=== PATIENT | male | born 2000 | race Caucasian/White ===

== ENCOUNTER → 2023-07-30 09:21 | Outpatient (REF) | payer BC, SELFPAY | LOC: RAD 09:21 | PROVIDERS: ATTENDING PHYSICIAN Specialist | DX: K50.00 Crohn's disease of small intestine without complications (principal) | CPT/HCPCS: 74250 ==

== ENCOUNTER 2023-10-27 18:25 | Inpatient (IN) | payer BC, SELFPAY ==
[2023-10-27] VITALS (9 sets, daily range): BP systolic 106–142; BP diastolic 56–98; BMI 22.2; BMI 21.8
[2023-10-27 12:01] LABS: % Basophils 0.2 % (0-2); % Immature Granulocytes 0.4 % (0-0.5); % Lymphocytes 4.8 % (20.5-51.1); % Monocytes 4.8 % (1.7-9.3); % Neutrophils 89.8 % (42.2-75.2); Absolute Immature Granulocytes 0.1 10^3/uL (0-0.05); Absolute Lymphocytes 0.6 10^3/uL (1.2-3.4); Absolute Monocytes 0.6 10^3/uL (0.1-0.6); Absolute Neutrophils 11.9 10^3/uL (1.4-6.5); Hematocrit 43.4 % (39.0-52.0); Hemoglobin 14.8 g/dL (13.0-18.0); Mean Corp Hgb Conc. 34.1 g/dL (33.0-37.0); Mean Corpuscular Hgb 24.7 pg (27.0-31.0); Mean Corpuscular Volume 72.5 fL (80.0-94.0); Mean Platelet Volume 8.4 fL (7.4-10.4); Nucleated Red Blood Cells % 0 % (-); Platelet Count 388 10^3/uL (130-400); Red Blood Cell Count 5.99 10^6/uL (4.70-6.10); Red Cell Dist. Width 18.4 % (11.5-14.5); White Blood Cell Count 13.2 10^3/uL (4.8-10.8)
[2023-10-27 12:15] LABS: Lactic Acid 1.5 mmol/L (0.7-2.0)
[2023-10-27 12:17] LABS: ALT (SGPT) 21 U/L (0-50); AST (SGOT) 24 U/L (17-59); Albumin 4.8 g/dl (3.5-5.0); Alkaline Phosphatase 87 U/L (38-126); Blood Urea Nitrogen 14 mg/dl (9-20); Calcium 10.3 mg/dl (8.4-10.2); Carbon Dioxide 22 mmol/L (22-30); Chloride 101 mmol/L (98-107); Glucose 131 mg/dl (70-99); Lipase 64 U/L (23-300); Potassium 4.6 mmol/L (3.5-5.1); Sodium 139 mmol/L (135-145); Total Bilirubin 1.2 mg/dl (0.2-1.3); Total Protein 7.8 g/dl (6.3-8.2); eGFR > 60.00
[2023-10-27] MEDS: NSS 1000 IV (13:21)
[2023-10-27] MEDS: OMNIPAQUE 50 ML PO (13:21)
[2023-10-27 13:33] LABS: Erythrocyte Sed Rate 11 mm/hour (0-20)
[2023-10-27] MEDS: ZOFRAN 4 MG IV ×2 (13:43→18:35)
[2023-10-27] MEDS: MORPHINE SULFATE 4 MG IV ×2 (14:43→16:30)
--- NOTE | 2023-10-27 17:11 | ED.GENMED ---
History of Present Illness
General
Chief Complaint: Abdominal Pain
Source: patient and family
Time Seen by Provider: 10/27/23 12:34
History of Present Illness
History of Present Illness:
22-year-old male with history of Crohn's disease who presents with abdominal pain. The patient states that he was coming home today from college to get an infusion of Skyrizi. He states that this morning he woke up feeling feverish. As he got on
the plane he began to have abdominal pain. He went to the bathroom did feel better after having a bowel movement. He since has vomited and the pain does seem better after vomiting or bowel movement. But the pain has persisted. No further feeling
of fevers. No melena or hematemesis. Patient got diagnosed this past summer.
Past History
Past History
ED Past Medical History: Other (Crohn's disease)
Phy Exam
Physical Exam
Physical Exam:
CONSTITUTIONAL Patient alert and oriented to person, place and time. Vital signs reviewed.
HEAD atraumatic, normocephalic.
EYES eyelids normal to inspection, Pupils equally round and reactive to light, Extraocular muscles intact, Conjunctiva normal, Sclera normal.
NECK normal range of motion, Trachea midline, no jugular venous distention.
RESPIRATORY CHEST No respiratory distress noted, Chest expansion equal
ABDOMEN moderate diffuse tenderness. Right lower quadrant greater than left lower quadrant..
BACK normal inspection, no obvious deformities
UPPER EXTREMITY range of motion normal, Motor strength normal, no cyanosis, no edema.
LOWER EXTREMITY range of motion normal, Motor strength normal, no cyanosis, no edema.
NEURO Speech normal, No focal motor deficits, Zonia coma scale 15, Memory normal, Cranial Nerves intact to screening exam.
SKIN skin warm, dry, and normal in color.
PSYCHIATRIC patient oriented to person place and time, Normal affect.
Course
Orders/Labs/Results
Orders:
Orders
10/27/23 11:44
C-Reactive Protein Urgent
Comment: ADD
Complete Blood Count/With Diff Urgent
Comprehensive Metabolic Panel Urgent
Erythrocyte Sed Rate Urgent
Comment: ADD
Ferritin Urgent
Comment: ADD ON
Iron Urgent
Comment: ADD ON
Lactic Acid Urgent
Lipase Urgent
Total Iron Binding Urgent
Comment: ADD ON
10/27/23 13:11
Add On- LAB Urgent
Tests Added?: CRP, ESR
10/27/23 13:12
CT Abd/pel W Iv And Oral Contr Urgent
Comment:
Reason For Exam: lower abd pain, h/o Crohns
Iohexol [Omnipaque] See Protocol PO NOW STA
10/27/23 13:13
0.9% Sodium Chloride 1000 ml [Nss] 1,000 ml IV BOLUS
10/27/23 13:41
Ondansetron Injectable [Zofran] 4 mg IV NOW STA
10/27/23 14:35
Morphine Sulfate 4 mg IV NOW STA
10/27/23 16:24
Morphine Sulfate 4 mg IV NOW STA
10/27/23 17:12
CDIFF [C difficile Antigen & Toxins] Urgent
[place] Source: Feces/Stool
Specimen Description:
Stool Culture Urgent
[place]IA Source: Feces/Stool
Specimen Description:
10/27/23 17:52
HYDROmorphone [Dilaudid] 0.5 mg IV Q3HPRN PRN
Ondansetron Injectable [Zofran] 4 mg IV Q6HPRN PRN
10/27/23 17:55
Add On- LAB Urgent
Tests Added?: Fe, TIBC, ferritin
10/27/23 17:56
Admit/Transfer Patient As Directed
Co-Sign Provider:
Level of Care: Inpatient admission
Assign to:: Medical/Surgical
Physician / Group: Tori
Diagnosis: crohn's flare
Reason for Hospitalization: crohn's flare
Expected length of stay greater than two midnights?: Yes
ELOS- Estimated Length of Stay in days: 4
I certify the patient meets the requirements for IP care: Yes
PRN Pain Medication Management As Directed
May give lesser potent ordered pain med per pt: Yes
preference::
Protocol:: Medication orders for pain may be administered in a
manner that supports deferring to patient preference
when the pt is:
- Requesting an ordered lesser potent pain medication.
Least to most potent pain medications are defined
as: acetaminophen < NSAID < tramadol < opioids
(morphine, oxycodone, hydromorphone).
- Requesting a lesser dose of the same medication IF
ORDERED.
- Requesting a less intrusive route of administration
if both routes are prescribed by the provider (PO <
IV).
10/27/23 17:57
Code Status As Directed
Resuscitation Status: Full Code
10/27/23 18:00
CefTRIAXone [Rocephin] 1,000 mg IV Q24H
MetroNIDAZOLE 500 MG/100 ML [Flagyl 500 mg] 100 ml IV Q8H
10/27/23 18:31
Dextrose 5%/0.45%Sodchl 1000ML [D5/0.45%NaCl] 1,000 ml IV 125 mls/hr
Enoxaparin Sodium [Lovenox] 40 mg SC QPM
10/27/23 18:31
GASTROINTESTINAL CONSULT Routine
Consulting Provider: Piyush Tellez
Was physician already notified: Yes
Reason for consult: crohn's flare
SURGICAL CONSULT Routine
Consulting Provider: Ramos Montalvo
Was physician already notified: Yes
Reason for consult: SBO
Activity As Directed
Activity Level: With Assistance
Vital Signs As Directed
Frequency: Per unit guidelines
DX Deep Vein Thrombosis Video Routine
10/27/23 20:00
MethylPREDNISolone PF [Solu-Medrol Pf] 40 mg IV Q8H
Vancomycin HCl [Firvanq] 125 mg PO Q12
10/28/23 Breakfast
NPO
Allow oral meds: Yes
Allow clear liquids: No
Basic Metabolic Panel IN AM
Complete Blood Count/No Diff IN AM
Magnesium IN AM
Abdomen Xray - 1 View [CR Abdomen - 1 View] IN AM
Comment:
Reason For Exam: SBO
10/29/23 06:00
Basic Metabolic Panel IN AM
Complete Blood Count/No Diff IN AM
10/30/23 06:00
Basic Metabolic Panel IN AM
Complete Blood Count/No Diff IN AM
10/31/23 06:00
Basic Metabolic Panel IN AM
Complete Blood Count/No Diff IN AM
11/01/23 06:00
Basic Metabolic Panel IN AM
Complete Blood Count/No Diff IN AM
11/02/23 06:00
Basic Metabolic Panel IN AM
Complete Blood Count/No Diff IN AM
11/03/23 06:00
Basic Metabolic Panel IN AM
Complete Blood Count/No Diff IN AM
Abnormal Lab Results
10/27/23
11:44
WBC 13.2 H 10^3/uL
(4.8-10.8)
MCV 72.5 L fL
(80.0-94.0)
MCH 24.7 L pg
(27.0-31.0)
RDW 18.4 H %
(11.5-14.5)
Abs Immat Gran (auto) 0.1 H 10^3/uL
(0-0.05)
Absolute Neuts (auto) 11.9 H 10^3/uL
(1.4-6.5)
Absolute Lymphs (auto) 0.6 L 10^3/uL
(1.2-3.4)
Neutrophils % 89.8 H %
(42.2-75.2)
Lymphocytes % 4.8 L %
(20.5-51.1)
Glucose 131 H mg/dl
(70-99)
Calcium 10.3 H mg/dl
(8.4-10.2)
Iron 36 L ug/dl
(49-181)
% Saturation 8 L %
(20-50)
C-Reactive Protein 25.30 H mg/L
(0.0-10.00)
10/27/23 11:44
10/27/23 11:44
Vital Signs
Initial and Last Documented VS:
Initial Vital Signs
Temp Pulse Resp BP Pulse Ox
98.2 F 80 20 142/98 99
10/27/23 11:37 10/27/23 11:37 10/27/23 11:37 10/27/23 11:37 10/27/23 11:37
Last Documented Vital Signs
Temp Pulse Resp BP Pulse Ox
97.6 F 85 18 138/74 96
10/27/23 19:43 10/27/23 19:43 10/27/23 19:43 10/27/23 19:43 10/27/23 19:43
MDM/Problems Addressed
MDM/Problems Addressed:
Acute flare of Crohn's disease, acute ileitis, suspected bowel obstruction, possible ileus, leukocytosis
*Radiology
Radiology exam reviewed: preliminary read by ED provider (No free air but significant inflammation in the right lower quadrant) and radiology read reviewed
*Pulse Oximetry
Patient hypoxic: no
*Critical Care Note
Total Time (30-74mins, 75-104mins- exclusive of procedures): Not Applicable
Data Reviewed
Source: patient and family
Patient Management
Discussion with other providers: Hospitalist and Instructional Coordinator (Case discussed with gastroenterology)
Escalation/DeEscalation of care consider admission/obs:
Unfortunate 3-year-old male with Crohn's disease and acute flare with SBO versus ileus. Continue to control pain. Case discussed with gastroenterology.
ED Attending Note
-
Portions of this chart may have been created with voice recognition software.� Occasional wrong word or��sound alike� substitutions may have occurred due to the inherent limitations of voice recognition software.
Discharge Plan
Departure
Patient Disposition: Admit
Date of Disposition: 10/27/23
Time of Disposition: 17:12
Admit to: Med/Surg
Presentation/result/management discussed w/ accepting MD/DO: Hospitalist
Discharge Problem:
Crohn's colitis, ileus vs
Interventions
Interventions:
*Risk Screen - Suicide Last Done: 10/27/23 11:37
*General Assessment Last Done: 10/27/23 11:37
*Neglect/Abuse Screening Last Done: 10/27/23 11:37
ED- Fall Risk Assessment Last Done: 10/27/23 12:37
*ED COVID-19 Vaccine History Last Done: 10/27/23 12:09
*Nursing Disposition Last Done: 10/27/23 19:42
IE-Ygxltm-Muigsadzur Assessment Last Done: 10/27/23 12:37
Discharge Date and Time
Discharge Date/Time: 10/27/23 19:42
--- NOTE | 2023-10-27 17:22 | HPS.HSE ---
Family Physician
-
Family Physician: Jose Huston
Chief Complaint
-
Abdominal pain and vomiting
History of Present Illness
22 old male with a past medical history of Crohn's disease on [facility] (received first infusion about a month ago, was due for second infusion tomorrow) who presents with chief complaints of abdominal pain and vomiting. Patient was in his usual
state of health yesterday. He flew in from [facility] today for his infusion tomorrow. This morning he had vomiting at 2 AM, 5 AM, and then multiple episodes of vomiting around 11 AM. It was biliary and without hematemesis or coffee-ground emesis.
He has had diffuse abdominal pain that has been achy. He has had some headache. Denies fevers. He denies any other acute complaints.
Medical History
Past Medical History
Past Medical History: Reports Other (Crohn's disease)
Past Surgical History: Reports Other (N/A)
Social History
Tobacco: Non-smoker
Alcohol: Occasional
Drug: Marijuana
Family History
Family History: Not pertinent
Allergies / Home Medications
Allergies reflects when Allergies were last updated in Stockpile.
Home Medications with original date entered in Stockpile
Allergy/Medication List:
Allergies
Allergy/AdvReac Type Severity Reaction Status Date / Time
No Known Allergies Allergy Verified 10/27/23 11:37
Home Medications
acetaminophen 325 mg tablet (Tylenol) 650 mg PO Q6HPRN PRN mild pain 10/27/23
ferrous sulfate 325 mg (65 mg iron) tablet 325 mg PO Q48H 10/27/23
ketoconazole 2 % shampoo 1 applic topical DAILYPRN PRN dandruff flareup 10/27/23
therapeutic multivitamin 1 tab PO DAILY 10/27/23
Review of Systems
-
History Source: Patient
A 12 point ROS was completed and negative except as noted: Yes
Physical Exam
Vital Signs
Vital Signs
Temp Pulse Resp BP Pulse Ox
98.2 F 91 16 108/62 97
10/27/23 11:37 10/27/23 16:09 10/27/23 16:09 10/27/23 17:00 10/27/23 17:00
Physical Exam
General: Other (.)
Laboratory Results
-
10/27/23 11:44
10/27/23 11:44
Laboratory Results
Lactic Acid 1.5 mmol/L (0.7-2.0) 10/27/23 11:44
Total Bilirubin 1.2 mg/dl (0.2-1.3) 10/27/23 11:44
AST 24 U/L (17-59) 10/27/23 11:44
ALT 21 U/L (0-50) 10/27/23 11:44
Alkaline Phosphatase 87 U/L (38-126) 10/27/23 11:44
Lipase 64 U/L (23-300) 10/27/23 11:44
Impression/Plan
-
Gen: NAD, AAOx3.
Eyes: EOMI, PERRLA, no scleral icterus.
Neck: supple.
CV: RRR, +S1/S2, no m/r/g.
Resp: CTAB, no rales, wheezes, or rhonchi.
Abd: +BS, soft, diffuse TTP with mild guarding, ND
Skin: No rashes.
Neuro: CN 2-12 intact, non-focal.
Psych: Normal mood and affect.
CT A/P: There is extensive wall thickening, hyperenhancement and surrounding stranding involving the terminal ileum measuring approximately 8.5 cm in length. Findings are consistent with inflammation secondary to known Crohn's disease. There is
associated diffuse small bowel and gastric distention which may related to reactive ileus versus obstruction with possible underlying stenosis of the terminal ileum. Small volume free fluid within the left paracolic gutter.
Acute Crohn's Flare:
-ESR 11, CRP 25
-CT A/P above
-NPO/IVFs
-c/s GI
-IV Rocephin/Flagyl
-IV solumedrol
-PO Vanco with h/o C diff colitis
-with possible SBO c/s surgery
-case discussed with Drs. Tellez and Selvin
-If persistent vomiting will need NG tube placed
-pain control with IV dilaudid
-antiemetics
Microcytosis:
-Currently hemoglobin is normal but with IV fluids I am sure his hemoglobin will dilute out and he is in fact anemic at this time
-Add on iron, TIBC, ferritin
Patient's parents updated extensively at bedside.
FULL/Lovenox
[2023-10-27 18:26] LABS: Iron 36 ug/dl (49-181)
[2023-10-27 18:35] LABS: Percent Saturation 8 % (20-50); Total Iron Binding Capacity 414 ug/dl (261-462)
[2023-10-27] MEDS: DILAUDID 0.5 MG IV ×2 (18:35→21:43)
[2023-10-27 20:02] LABS: Ferritin 30.1 ng/ml (17.9-464.0)
[2023-10-27] MEDS: D5/0.45%NACL 1000 IV (20:26)
[2023-10-27] MEDS: FLAGYL 500 MG 100 IV (20:30)
[2023-10-27] MEDS: STERILE WATER FOR INJECTION 10 ML IV (20:30)
[2023-10-27] MEDS: LOVENOX 40 MG SC (20:30)
[2023-10-27] MEDS: ROCEPHIN 1000 MG IV (20:30)
[2023-10-27] MEDS: SOLU-MEDROL PF 40 MG IV (20:30)
--- NOTE | 2023-10-27 20:30 | PTCARENOTE ---
Pt received from ED via stretcher. Ambulated to bed independently without incident. Oriented to surroundings and plan of care discussed. Admission and assessment completed (refer to worklist). Parents at bedside - all questions answered.
Reports intermittent abdominal pain 5/10, tolerable at present. Oral swabs provided for comfort. IVF infusing via #20 LAC without complication. Call morocho within reach. Plan of care ongoing.
[2023-10-27] MEDS: FIRVANQ 125 MG PO (23:03)
[2023-10-28] MEDS: FLAGYL 500 MG 100 IV ×2 (03:08→10:48)
[2023-10-28] MEDS: SOLU-MEDROL PF 40 MG IV ×2 (05:12→13:04)
[2023-10-28] MEDS: D5/0.45%NACL 1000 IV ×3 (05:12→19:42)
[2023-10-28 07:02] VITALS: BP 115/68
[2023-10-28 07:56] LABS: Hematocrit 40.3 % (39.0-52.0); Hemoglobin 13.5 g/dL (13.0-18.0); Mean Corp Hgb Conc. 33.5 g/dL (33.0-37.0); Mean Corpuscular Volume 74.8 fL (80.0-94.0); Mean Platelet Volume 8.6 fL (7.4-10.4); Platelet Count 322 10^3/uL (130-400); Red Blood Cell Count 5.39 10^6/uL (4.70-6.10); Red Cell Dist. Width 17.4 % (11.5-14.5); White Blood Cell Count 8.4 10^3/uL (4.8-10.8)
[2023-10-28 08:11] LABS: Blood Urea Nitrogen 13 mg/dl (9-20); Calcium 9.2 mg/dl (8.4-10.2); Carbon Dioxide 24 mmol/L (22-30); Chloride 102 mmol/L (98-107); Estimated Creatinine Clearance > 125 ml/min; Glucose 161 mg/dl (70-99); Magnesium 1.9 mg/dl (1.6-2.3); Potassium 4.8 mmol/L (3.5-5.1); Sodium 138 mmol/L (135-145); eGFR > 60.00
--- NOTE | 2023-10-28 09:54 | CM ---
Patient seen bedside, initial assessment completed. Patient is a harleen in college, lives with his friends at school. When home, patient lives with family, is independent with ADLs/IADLs. Patient PCP when home is Jose Huston, pharmacy [facility]
[place] [facility]. Patient requesting a Doctors note upon discharge to provide to professors. CM will continue to follow for all discharge planning needs.
Plan; home no needs, requesting Doctors note when discharged.
--- NOTE | 2023-10-28 10:00 | CON.GS ---
Addendum entered and electronically signed by Ramos Montalvo MD 10/28/23 15:02:
Patient seen examined in follow-up this a.m. with surgery resident. Agree with documented consultation below with additions noted here.
HPI: 22-year-old male with recent medical history notable for diagnosis of Crohn's disease in August 2023. He was recently started on Skyrizi and received his first dose a little over a month ago with good response. He states that he has been able
to tolerate a low residue/regular diet recently without any significant abdominal pain, nausea or vomiting. He acutely developed abdominal pain awakening him from sleep yesterday morning at 2 AM which was previously not present. Generalized in
nature but a bit more in the lower abdomen. Subsequently developed recurrent nausea and vomiting and had not had a bowel movement all day yesterday prompting emergency department evaluation.
Since admission overnight his pain is significantly improved to the point that he is now only a bit uncomfortable but without acute abdominal pain. He had a large loose bowel movement this a.m. without melena or hematochezia. No return of nausea
vomiting overnight or this a.m.
No past abdominal surgical history. Recent colonoscopy over the summer.
Reports no family history of inflammatory bowel disease or GI malignancy.
AFVSS
NAD AAOx3
ABD: Soft, nondistended, mild generalized tenderness on palpation a bit greater in the central lower abdomen/right lower quadrant. No rebound, no rigidity, no voluntary or involuntary guarding.
White blood cell count 8.4 from 13.2 in ER. ESR normal. CRP elevated. Electrolyte panel and LFTs unremarkable. Lipase normal.
CT abdomen/pelvis with contrast 10/27/2023. Images personally reviewed as well as radiologist report. Distention of the stomach with oral contrast. . Dilated fluid-filled loops of small bowel. Enhancement of the distal/terminal ileum with tapering
just proximal to the ileocecal valve. Some surrounding inflammatory changes. No abscess, no extraluminal air. Fluid in the cecum.
Abdominal x-ray with still diffuse distention of the small bowel up to 3.9 cm. There may be some contrast in the rectum but difficult to tell. Does not appear to have residual contrast within the stomach or small bowel.
Assessment/plan: 22-year-old male recent diagnosis of ileal Crohn's disease presenting with acute inflammatory flare but no radiographic evidence of perforation, abscess, fistulizing disease. Given recent diagnosis obstructive symptoms are likely
reflective of acute inflammatory component rather than chronic stricturing disease. Clinically improving with bowel function and resolution of abdominal pain as well as nausea and vomiting.
Agree with acute medical management of Crohn's flare as per hospitalist and GI service.
No indications for urgent surgical management or intervention.
Okay to start clear liquid diet today from surgical perspective and monitor for obstructive symptoms.
Subsequently would cautiously/slowly advance and recommend low residue diet for the next few weeks given degree of inflammation of terminal ileum.
Original Note:
Consultation
-
Date/Time Consultation Requested: 10/27/2023 06:31pm
Date/Time Consultation Performed: 10/28/2023 09:41am
Requesting Provider: Dr. Valle
Performing Provider: Dr. Montalvo
Reason for Consultation: Possible Small Bowel Obstruction
Medical History
-
Chief Complaint: Abdominal pain and vomiting
History of Present Illness:
22 year old male with a past medical history of Crohn's disease (diagnosed in August 2023) comes to the hospital complaining of abdominal pain and vomiting. Patient is seen with his Father present. Patient's symptoms started yesterday early in the
morning at 2am when he had diffuse abdominal pain. He described the pain as achy and diffuse throughout his upper abdomen. This pain was accompanied by nausea and was relieved after he vomited. Patient's abdominal pain returned after a few hours and
he had to vomit again to relieve his symptoms. Patient's vomit had been biliary and without hematemesis or coffee-ground emesis.
Patient history of Crohn's began when he had a lower GI bleed along with C-Diff infection diagnosed back in May 2023. Patient was treated at this time and was recommended to see GI in outpatient for follow up imaging. On follow up imaging months
later, patient was diagnosed with Crohn's disease and started on Skyrizi. Patient states that he received his first dose of medication in early May and was supposed to get his second dose this week. He states that the medication has helped relieve
his GI discomfort throughout the month and he had been eating regular food with no discomfort.
Patient has had no other acute complaints and has denied any fevers, chills, bloody stools, and has not had any nausea since being at the hospital.
Past Medical History
Past Medical History: Other (Crohn's Disease)
Social History
Tobacco: Non-Smoker
Alcohol: Occasional
Drug: Marijuana
Family History
Family History: Reviewed & Not Pertinent
Allergies / Home Medications
Allergy/AdvReac Type Severity Reaction Status Date / Time
No Known Allergies Allergy Verified 10/27/23 11:37
�Medication �Instructions �Recorded �Confirmed �Type
acetaminophen 325 mg tablet 650 mg PO Q6HPRN PRN mild pain 10/27/23 10/27/23 History
(Tylenol)
ferrous sulfate 325 mg (65 mg 325 mg PO Q48H 10/27/23 10/27/23 History
iron) tablet
ketoconazole 2 % shampoo 1 applic topical DAILYPRN PRN 10/27/23 10/27/23 History
dandruff flareup
therapeutic multivitamin 1 tab PO DAILY 10/27/23 10/27/23 History
Review of Systems
-
History Source: Patient and Family
All other systems: Negative unless noted
Abdomen/GI: Abdominal Pain and Vomiting
A 10 point review of systems was completed, and was negative except as per HPI.
Physical Exam
Vital Signs
Temp Pulse Resp BP Pulse Ox
97.6 F 58 20 115/68 97
10/28/23 07:02 10/28/23 07:02 10/28/23 07:02 10/28/23 07:02 10/28/23 07:02
10/27/23 10/28/23 10/29/23
06:59 06:59 06:59
Actual Weight 76.856 kg
Body Mass Index (BMI) 21.8
Lab Results
10/28/23 07:14
10/28/23 07:14
WBC 8.4 10^3/uL (4.8-10.8) 10/28/23 07:14
Hgb 13.5 g/dL (13.0-18.0) 10/28/23 07:14
Hct 40.3 % (39.0-52.0) 10/28/23 07:14
Plt Count 322 10^3/uL (130-400) 10/28/23 07:14
Abs Immat Gran (auto) 0.1 10^3/uL (0-0.05) H 10/27/23 11:44
Neutrophils % 89.8 % (42.2-75.2) H 10/27/23 11:44
Physical Exam
General: Well Developed and Well Nourished
GI: Soft, Non Distended and Tender (diffuse mild tenderness)
Skin: Warm and Dry
Neuro: Awake, Alert, Oriented and AO x 3
Data Reviewed
-
CT Scan: Report Reviewed by me, Discussed with Physician, Discussed with Patient and Discussed with Family
Labs: Labs Reviewed by me, Discussed with Physician, Discussed with Patient and Discussed with Family
Assessment / Plan
-
Assessment:
22yo male with a past medical history of Crohn's disease comes to the hospital with increased abdominal pain and vomiting probable due to an acute flare of Crohn's
Plan:
Acute Crohn's Flare
-Surgery consulted due to possible SBO
-Abd XR- Persistent gaseous distention of the small bowel measuring up to 3.9 cm consistent with known small bowel obstruction.
-CT Abd/Pelvis showed extensive wall thickening, hyperenhancement and surrounding stranding involving the terminal ileum measuring approximately 8.5 cm in length. Findings are consistent with inflammation secondary to known Crohn's disease. There is
associated diffuse small bowel and gastric distention which may related to reactive ileus versus obstruction with possible underlying stenosis of the terminal ileum
-ESR 11, CRP [address] imaging-> supports acute flare of Crohn's
-GI consulted, input appreciated
-Patient currently NPO/IVF- feeling better after medication, could advance to clear liquid if cleared by GI
-Continue management of Acute Flare of Crohn's according to medical team
-Continue abx as per medical team
-PRN anti-emetics and pain control
-No surgery planned for now, will continue monitoring for any further changes
-DVT prophylaxis- Lovenox
[2023-10-28] MEDS: FIRVANQ 125 MG PO (10:48)
--- NOTE | 2023-10-28 11:11 | W.PN.HOSP.TC ---
Today's Communication/Plan
-
see bold
Assessment / Plan
Assessment / Plan
Gen: NAD, AAOx3.
Eyes: EOMI, PERRLA, no scleral icterus.
Neck: supple.
CV: Remains RRR, +S1/S2, no m/r/g.
Resp: Remains CTAB, no rales, wheezes, or rhonchi.
Abd: +BS, soft, nontender to light palpation, ND
Skin: No rashes.
Neuro: CN 2-12 intact, non-focal.
Psych: Normal mood and affect.
CT A/P: There is extensive wall thickening, hyperenhancement and surrounding stranding involving the terminal ileum measuring approximately 8.5 cm in length. Findings are consistent with inflammation secondary to known Crohn's disease. There is
associated diffuse small bowel and gastric distention which may related to reactive ileus versus obstruction with possible underlying stenosis of the terminal ileum. Small volume free fluid within the left paracolic gutter.
Acute Crohn's Flare, SBO:
-ESR 11, CRP 25
-CT A/P above
-NPO/IVFs
-c/s GI
-surgery following, no surgical intervention indicated at this time
-IV Rocephin/Flagyl/solumedrol
-PO Vanco with h/o C diff colitis
-pain control with IV dilaudid
-antiemetics
Microcytosis:
-Hb remains normal
-Fe and % sat slightly low
-IV Fe
Patient's mother updated extensively at bedside.
FULL/Lovenox
Anticipated Discharge: > 48 hours
Subjective/Interval History
-
Date of Service: October 28, 2023
No vomiting since yesterday evening. Abdominal pain and symptoms overall improving.
Objective Data
-
Labs:
Laboratory Results
10/28/23
07:14
WBC 8.4
Hgb 13.5
Hct 40.3
Plt Count 322
Sodium 138
Potassium 4.8
Chloride 102
Carbon Dioxide 24
BUN 13
Creatinine 0.8
Glucose 161 H
Calcium 9.2
Vital Signs:
Vital Signs
Temp Pulse Resp BP Pulse Ox
97.6 F 58 20 115/68 97
10/28/23 07:02 10/28/23 07:02 10/28/23 07:02 10/28/23 07:02 10/28/23 07:02
I&O
10/27/23 10/28/23 10/29/23
06:59 06:59 06:59
Intake Total 900 / 900
Balance 900 / 900
--- NOTE | 2023-10-28 12:27 | CON.GI ---
Addendum entered and electronically signed by Piyush Tellez MD 10/28/23 16:49:
I saw and examined the patient.
The PA's note was reviewed and I agree with the note.
Comment:
The patient is a 22 year old male with h/o recent dx of Crohn's disease who p/w abdo pain and vomiting. Had long h/o GI issues since high school. Pt previously had CT which showed changes concerning for crohn's disease, eventually saw Dr. Otero
OAnna in [place] and was dx with CD involving TI. Started on Skyrizi 1 month ago and was due for second infusion today. He was bridging with Budesonide 3 tablets daily and admits to missing a few days with moving then stopping about 2 weeks
ago.
Impression / Rec:
1. Crohn's disease - started on Skyrizi infusion, due for second infusion today, was taking budesonide in the interim which he stopped taking for past 2 weeks now p/w abdominal pain/vomiting. CT here showed extensive wall thickening,
hyperenhancement and surrounding stranding involving the terminal ileum measuring approximately 8.5 cm in length consistent with acute flare. Prior h/o C. diff. Empirically started on PO vanco and ceftriaxone, and IV steroids. Feeling better,
denies further vomiting, feeling hungry. Will d/c abx now. OK with CLD. If pt continues to do well, convert steroids to oral. He has appointment next week for his second Skyrizi infusion.
Original Note:
Consultation
-
Date/Time Consultation Requested: 10/27/23 1800
Date/Time Consultation Performed: 10/28/23 1230
Requesting Provider: Elijah Valle MD
Performing Provider: JEREMIAH Caldwell, Piyush Tellez MD
Reason for Consultation: crohns flare
Medical History
Chief Complaint / HPI
History of Present Illness:
Pt is a 22yo with hx GI issues since high school. Pt was initially seen and though to be food allergy issue. He then developed c-diff last spring while at [facility] in [facility] and noted with Ct changes concerning for crohn's disease and steroids
along with vanco then Dificid was given. Pt was followed up with Branden Dave in [place] with completed colonoscopy with TI disease per family recall and SB imaging in July with severe crohns involving distal ileum with deep ulceration narrowing,
intramural sinus tracts and sever fibrofatty mesenteric proliferation the ileal small bowel loops. He has been approved for Activaero with start 1 month ago and due to second infusion today. He was bridging with Budesonide 3 tablets
daily and admits to missing a few days with moving then stopping about 2 weeks ago. He began last few days and on travel home with abdominal pain, nausea, distention and large amount of emesis and came from airport directly to hospital. On
admission noted with extensive wall thickening, hyperenhancement and surrounding stranding involving the terminal ileum measuring approximately 8.5 cm in length. Findings are consistent with inflammation secondary to known Crohn's disease. There
is associated diffuse small bowel and gastric distention which may related to reactive ileus versus obstruction with possible underlying stenosis of the terminal ileum. follow up imaging with SB up to 3.9cm. Pt was given steroid and abx on
admission with some improvement and no further vomiting.
Pt otherwise denies odynophagia, GERD, diarrhea, constipation or rectal bleeding. He does have dark stool with iron use. He was noted with iron deficiency with normal hbg 14.8 with iron deficiency, WBC 13.2 with normalization after admission.
CRP 25.3. Pt has been on oral iron. No rashes visual problems or joint pains.
Past Medical History
Past Medical History: Other (crohns disease dx 2023, c-diff infection)
Social History
Tobacco: Other (cigar smoking )
Alcohol: Occasional (occasional ETOH college student )
Drug: Marijuana
Personal: Other (college student )
Employment: Other (student )
Family History
Family History: Other (multiple family members with autoimmune disease, no family hx crohns or UC)
Allergies / Home Medications
Allergy/AdvReac Type Severity Reaction Status Date / Time
No Known Allergies Allergy Verified 10/27/23 11:37
�Medication �Instructions �Recorded
acetaminophen 325 mg tablet 650 mg PO Q6HPRN PRN mild pain 10/27/23
(Tylenol)
ferrous sulfate 325 mg (65 mg 325 mg PO Q48H 10/27/23
iron) tablet
ketoconazole 2 % shampoo 1 applic topical DAILYPRN PRN 10/27/23
dandruff flareup
therapeutic multivitamin 1 tab PO DAILY 10/27/23
Review of Systems
-
History Source: Patient and Family
Constitutional: Reports Fever and Weight Loss (few lbs )
EENT: Reports No Symptoms
Respiratory: Reports No Symptoms
Cardiac: Reports No Symptoms
Abdomen/GI: Reports Abdominal Pain, Nausea, Vomiting and Other (dark stool with iron, bloating )
: Reports No Symptoms
Musculoskeletal: Reports No Symptoms
Skin: Reports No Symptoms
Endocrine: Reports No Symptoms
Hematologic/Lymphatic: Reports No Symptoms
Vital Signs
Temp Pulse Resp BP Pulse Ox
97.6 F 58 20 115/68 97
10/28/23 07:02 10/28/23 07:02 10/28/23 07:02 10/28/23 07:02 10/28/23 07:02
Physical Exam
Exam
General: Well Developed, Well Nourished and No Apparent Distress
HEENT: Normocephalic and Anicteric
Respiratory: Clear
Cardiac: Regular Rhythm
GI: Soft, Tender (mild ) and Distended (mild )
Skin: Warm and Dry
Neuro: Awake and Alert
Hematologic/Lymphatic: Lymphadenopathy
Psych: Calm
Results
WBC 8.4 10^3/uL (4.8-10.8) 10/28/23 07:14
Hgb 13.5 g/dL (13.0-18.0) 10/28/23 07:14
Hct 40.3 % (39.0-52.0) 10/28/23 07:14
MCV 74.8 fL (80.0-94.0) L 10/28/23 07:14
Plt Count 322 10^3/uL (130-400) 10/28/23 07:14
Absolute Neuts (auto) 11.9 10^3/uL (1.4-6.5) H 10/27/23 11:44
Sodium 138 mmol/L (135-145) 10/28/23 07:14
Potassium 4.8 mmol/L (3.5-5.1) 10/28/23 07:14
Chloride 102 mmol/L (98-107) 10/28/23 07:14
Carbon Dioxide 24 mmol/L (22-30) 10/28/23 07:14
BUN 13 mg/dl (9-20) 10/28/23 07:14
Creatinine 0.8 mg/dL (0.7-1.3) 10/28/23 07:14
Calcium 9.2 mg/dl (8.4-10.2) 10/28/23 07:14
Total Bilirubin 1.2 mg/dl (0.2-1.3) 10/27/23 11:44
AST 24 U/L (17-59) 10/27/23 11:44
ALT 21 U/L (0-50) 10/27/23 11:44
Alkaline Phosphatase 87 U/L (38-126) 10/27/23 11:44
Lipase 64 U/L (23-300) 10/27/23 11:44
Diagnostic Image Results:
10/28/23 abd film
Persistent gaseous distention of the small bowel measuring up to 3.9 cm consistent with known small bowel obstruction.
10/27/23 CT Abd/pel W Iv And Oral Contr
There is extensive wall thickening, hyperenhancement and surrounding stranding involving the terminal ileum measuring approximately 8.5 cm in length. Findings are consistent with inflammation secondary to known Crohn's disease. There is associated
diffuse small bowel and gastric distention which may related to reactive ileus versus obstruction with possible underlying stenosis of the terminal ileum.
Small volume free fluid within the left paracolic gutter.
07/30/23 RF Sm Intest ONLY-Single Cont
SEVERE CROHN'S DISEASE involving a 15 cm in length segment of DISTAL ILEUM (including the terminal ileum) with deep ulcerations, luminal narrowing, intramural sinus tracts, and severe fibrofatty mesenteric proliferation the ileal small
bowel loops.
Prior GI Procedures:
Colonoscopy: + crohn per patient with Dr. Tenzin Hernandez
Assessment / Plan
-
Pt is a 22yo with hx GI issues since high school. Pt was initially seen and though to be food allergy issue. He then developed c-diff last spring while at [facility] in [facility] and noted with Ct changes concerning for crohn's disease and steroids
along with vanco then Dificid was given. Pt was followed up with [facility] Dave in [place] with completed colonoscopy with TI disease per family recall and SB imaging in July with severe crohns involving distal ileum with deep ulceration narrowing,
intramural sinus tracts and sever fibrofatty mesenteric proliferation the ileal small bowel loops. He has been approved for Activaero with start 1 month ago and due to second infusion today. He was bridging with Budesonide 3 tablets
daily and admits to missing a few days with moving then stopping about 2 weeks ago. He began last few days and on travel home with abdominal pain, nausea, distention and large amount of emesis and came from airport directly to hospital. On
admission noted with extensive wall thickening, hyperenhancement and surrounding stranding involving the terminal ileum measuring approximately 8.5 cm in length. Findings are consistent with inflammation secondary to known Crohn's disease. There
is associated diffuse small bowel and gastric distention which may related to reactive ileus versus obstruction with possible underlying stenosis of the terminal ileum. follow up imaging with SB up to 3.9cm. Pt was given steroid and abx on
admission with some improvement and no further vomiting.
prior labs in July hbg 13.1, iron 18, iron sat 5, CRP15.
-crohns flare- with TI disease
-hx c-diff
hx iron deficiency/microcytosis likely secondary to IBD
PLAN:
Etiology of symptoms with concern for crohns flare with stopping recent Budesonide vs obstructive process vs other
Ct and prior SB imaging as noted
pt already feeling improved
cont IV steroids on solumedrol will change to 20mg Q 8 hours if improving consider transition to PO prednisone
will trial clear diet
cont IV abx and PO vanco with hx c-diff
reviewed with surgery
updated family
Pt due for infusion with Dr. Dave on Wednesday for next dose Skyrizi
marijuana abstience
cont Lovenox as high risk for DVT with active disease
-
-
Thank you for consultation and allowing me to participate in the patient's care. Please call the hydrogen plant operations manager GI physician during the after hours with any questions or concerns.
[2023-10-28] MEDS: FERRLECIT 110 MG IV (13:07)
[2023-10-28 15:31] VITALS: BP 125/66
[2023-10-28] MEDS: LOVENOX 40 MG SC (17:39)
[2023-10-28] MEDS: SOLU-MEDROL PF 20 MG IV (21:04)
[2023-10-28 23:00] VITALS: BP 114/72
[2023-10-29 00:23] VITALS: BP 114/72
[2023-10-29] MEDS: D5/0.45%NACL 1000 IV ×2 (02:06→09:36)
[2023-10-29] MEDS: SOLU-MEDROL PF 20 MG IV (04:59)
[2023-10-29 07:30] VITALS: BP 129/79
--- NOTE | 2023-10-29 08:17 | W.PN.GI.CBS2 ---
Today's Communication / Plan
-
Advance diet. Transition to PO steroids, if tolerating diet, okay to d/c with PO Prednisone later today with planned skyrizi infusion on 11/01.
Assessment / Plan
-
Pt is a 22yo with hx GI issues since high school. Pt was initially seen and though to be food allergy issue. He then developed c-diff last spring while at [facility] in [facility] and noted with Ct changes concerning for crohn's disease and steroids
along with vanco then Dificid was given. Pt was followed up with Branden Dave in [place] with completed colonoscopy with TI disease per family recall and SB imaging in July with severe crohns involving distal ileum with deep ulceration narrowing,
intramural sinus tracts and sever fibrofatty mesenteric proliferation the ileal small bowel loops. He has been approved for Skyrizi with start 1 month ago and due to second infusion today. He was bridging with Budesonide 3 tablets
daily and admits to missing a few days with moving then stopping about 2 weeks ago. He began last few days and on travel home with abdominal pain, nausea, distention and large amount of emesis and came from airport directly to hospital. On
admission noted with extensive wall thickening, hyperenhancement and surrounding stranding involving the terminal ileum measuring approximately 8.5 cm in length. Findings are consistent with inflammation secondary to known Crohn's disease. There
is associated diffuse small bowel and gastric distention which may related to reactive ileus versus obstruction with possible underlying stenosis of the terminal ileum. follow up imaging with SB up to 3.9cm. Pt was given steroid and abx on
admission with some improvement and no further vomiting.
Overnight, patient reports feeling much improved, tolerating diet, wishes to advance this morning.
prior labs in July hbg 13.1, iron 18, iron sat 5, CRP15.
Mild leukocytosis of 13.2 on initial labs, improved to 8.4 on repeat. CRP 25.3.
C.diff negative, stool culture pending
-crohns flare- with TI disease
-hx c-diff
hx iron deficiency/microcytosis likely secondary to IBD
PLAN:
Etiology of symptoms with concern for crohns flare 2/2 medication noncompliance (stopping budesonide), now with improvement following IV steroids x1 day
-advance diet to low residue
-if patient tolerating diet and feeling well, okay to d/c later today with PO steroids, with plans to taper with his outpatient GI doctor, Dr. Ramon
-2nd Skyrizi infusion schedled for Wednesday, 11/01
-transition with stopping recent Budesonide vs obstructive process vs other
-marijuana abstinence
-cont Lovenox as high risk for DVT with active disease
Subjective
Subjective
Date of Service: October 29, 2023
Patient seen in follow-up, resting comfortably. No episodes of diarrhea overnight. He tolerated his diet without issue, wishes to advance to low residue this morning. C. difficile negative, stool culture pending.
Objective
Data Reviewed
Laboratory Data:
Laboratory Results
Magnesium 1.9 mg/dl (1.6-2.3) 10/28/23 07:14
Total Bilirubin 1.2 mg/dl (0.2-1.3) 10/27/23 11:44
AST 24 U/L (17-59) 10/27/23 11:44
ALT 21 U/L (0-50) 10/27/23 11:44
Alkaline Phosphatase 87 U/L (38-126) 10/27/23 11:44
Lipase 64 U/L (23-300) 10/27/23 11:44
Vital Signs and I&O:
Vital Signs
Temp Pulse Resp BP Pulse Ox
98.2 F 65 18 114/72 97
10/28/23 23:00 10/28/23 23:00 10/28/23 23:00 10/28/23 23:00 10/28/23 23:00
I&O
10/28/23 10/29/23 10/30/23
06:59 06:59 06:59
Intake Total 3730 / 3730
Output Total 175 / 175
Balance 3555 / 3555
Physical Exam
Physical Exam
GENERAL: In no acute distress, appears comfortable
ABDOMEN: +BS; soft, non-tender and non-distended; no rebound or guarding
[2023-10-29 08:28] LABS: Hematocrit 38.2 % (39.0-52.0); Hemoglobin 12.5 g/dL (13.0-18.0); Mean Corp Hgb Conc. 32.7 g/dL (33.0-37.0); Mean Corpuscular Hgb 24.7 pg (27.0-31.0); Mean Corpuscular Volume 75.5 fL (80.0-94.0); Mean Platelet Volume 8.7 fL (7.4-10.4); Platelet Count 294 10^3/uL (130-400); Red Blood Cell Count 5.06 10^6/uL (4.70-6.10); Red Cell Dist. Width 17.5 % (11.5-14.5); White Blood Cell Count 8.1 10^3/uL (4.8-10.8)
[2023-10-29 09:02] LABS: Blood Urea Nitrogen 9 mg/dl (9-20); Carbon Dioxide 28 mmol/L (22-30); Chloride 103 mmol/L (98-107); Estimated Creatinine Clearance > 125 ml/min; Glucose 132 mg/dl (70-99); Potassium 4.3 mmol/L (3.5-5.1); Sodium 140 mmol/L (135-145); eGFR > 60.00
[2023-10-29] MEDS: DELTASONE 40 MG PO (09:24)
--- NOTE | 2023-10-29 09:32 | W.PN.GS2 ---
Addendum entered and electronically signed by Ramos Montalvo MD 10/29/23 14:37:
Patient seen and examined in follow-up with nurse practitioner this afternoon.
He offers no specific concerns or questions/complaints.
Presenting symptoms essentially resolved other than mild lingering discomfort but no pain
Tolerated breakfast and lunch without nausea, vomiting or distention.
Continued bowel function
AFVSS
ABD: Soft, nondistended, minimal tenderness on deep palpation only. No R/R/G
A/P: 22-year-old male with acute Crohn's flare with resultant partial obstructive symptoms that are resolving
Further care per primary service and GI
Surgery signing off, please call if further concerns or questions
Original Note:
Today's Communication / Plan
-
Diet advancement
Assessment / Plan
-
22 yo male with h/o Crohn's disease presenting with acute inflammatory flare but no radiographic evidence of perforation, abscess, fistulizing disease. Given recent diagnosis obstructive symptoms are likely reflective of acute inflammatory
component rather than chronic stricturing disease. Clinically improving with bowel function and resolution of abdominal pain as well as nausea and vomiting.
AFVSS
Agree with acute medical management of Crohn's flare as per hospitalist and GI service.
No indications for urgent surgical management or intervention.
Diet advancement as per GI team
Surgery to follow peripherally, please call with questions/concerns
Subjective Data
-
Date of Service: October 29, 2023
Patient seen and examined at bedside. Denies n/v. Tolerating diet. Notes passage of flatus/stools. Feeling overall much better
Objective Data
-
Intake and Output
10/28/23 10/29/23 10/30/23
06:59 06:59 06:59
Intake Total 3730 / 3730
Output Total 175 / 175
Balance 3555 / 3555
Intake:
Oral fluids 480 / 480
IV fluids (Total) 2950 / 2950
IV piggybacks 300 / 300
Output:
Urine, Voided 175 / 175
Other:
Number of approximated MODERATE 3 2
amounts of urine
How many times incontinent 2
MODERATE amount urine
Vital Signs
Temp Pulse Resp BP Pulse Ox
97.7 F 69 20 129/79 98
10/29/23 07:30 10/29/23 07:30 10/29/23 07:30 10/29/23 07:30 10/29/23 07:30
Lab Results
10/29/23 07:45
10/29/23 07:45
Calcium 9.0 mg/dl (8.4-10.2) 10/29/23 07:45
Magnesium 1.9 mg/dl (1.6-2.3) 10/28/23 07:14
Total Bilirubin 1.2 mg/dl (0.2-1.3) 10/27/23 11:44
AST 24 U/L (17-59) 10/27/23 11:44
ALT 21 U/L (0-50) 10/27/23 11:44
Alkaline Phosphatase 87 U/L (38-126) 10/27/23 11:44
Total Protein 7.8 g/dl (6.3-8.2) 10/27/23 11:44
Albumin 4.8 g/dl (3.5-5.0) 10/27/23 11:44
Physical Exam
-
NAD
ABD soft, nt, nd
--- NOTE | 2023-10-29 10:14 | CM ---
CM reviewed chart. Patient seen bedside, reports no needs to CM at this time. Patient requesting Doctors note upon discharge. CM will continue to follow for all discharge planning needs.
Plan; home no needs, will need Doctors note.
--- NOTE | 2023-10-29 12:33 | W.PN.HOSP.TC ---
Addendum entered and electronically signed by Elijah Valle MD 10/29/23 14:27:
Total time spent on d/c = 31 min. This included today's physical exam, progress note, review of laboratory and diagnostic data, preparation of discharge documents and prescriptions, and discussions about the pt's hospital course and discharge plan
with the patient and other pediatric medical assistant involved in the patient's care.
Original Note:
Today's Communication/Plan
-
d/c
Assessment / Plan
Assessment / Plan
Gen: remains NAD, AAOx3.
Eyes: EOMI, PERRLA, no scleral icterus.
Neck: supple.
CV: continues to remain RRR, +S1/S2, no m/r/g.
Resp: continues to remain CTAB, no rales, wheezes, or rhonchi.
Abd: +BS, soft, nontender to light palpation, ND
Skin: No rashes.
Neuro: CN 2-12 intact, non-focal.
Psych: Normal mood and affect.
CT A/P: There is extensive wall thickening, hyperenhancement and surrounding stranding involving the terminal ileum measuring approximately 8.5 cm in length. Findings are consistent with inflammation secondary to known Crohn's disease. There is
associated diffuse small bowel and gastric distention which may related to reactive ileus versus obstruction with possible underlying stenosis of the terminal ileum. Small volume free fluid within the left paracolic gutter.
Acute Crohn's Flare, SBO:
-ESR 11, CRP 25
-CT A/P above
-was NPO/IVFs
-surgery following, no surgical intervention indicated at this time
-GI following. Was on Rocephin/Flagyl which have been stopped. Was on solumedrol, now transitioned to Prednisone.
-diet advanced to LR diet, pt can leave it he tolerates
-pain control with IV dilaudid
-antiemetics
Microcytosis:
-Hb remains normal
-Fe and % sat slightly low
-IV Fe
FULL/Lovenox
Medically cleared for d/c.
Total time spent on d/c = 33 min. This included today's physical exam, progress note, review of laboratory and diagnostic data, preparation of discharge documents and prescriptions, and discussions about the pt's hospital course and discharge plan
with the patient and other pediatric medical assistant involved in the patient's care.
Anticipated Discharge: Today
Subjective/Interval History
-
Date of Service: October 29, 2023
No vomiting since evening of admission. BM yesterday without blood or melena. Mild abdominal tenderness.
Objective Data
-
Labs:
Laboratory Results
10/29/23
07:45
WBC 8.1
Hgb 12.5 L
Hct 38.2 L
Plt Count 294
Sodium 140
Potassium 4.3
Chloride 103
Carbon Dioxide 28
BUN 9
Creatinine 0.8
Glucose 132 H
Calcium 9.0
Vital Signs:
Vital Signs
Temp Pulse Resp BP Pulse Ox
97.7 F 69 20 129/79 98
10/29/23 07:30 10/29/23 07:30 10/29/23 07:30 10/29/23 07:30 10/29/23 10:15
I&O
10/28/23 10/29/23 10/30/23
06:59 06:59 06:59
Intake Total 3730 / 3730
Output Total 175 / 175
Balance 3555 / 3555
[2023-10-29] MEDS: FERRLECIT 110 MG IV (14:32)
[2023-10-29] MEDS: FLUSH (NSS) 1 FLUSH IV (14:32)
[2023-10-29 15:15] VITALS: BP 131/72
--- NOTE | 2023-10-29 15:41 | W.DCSUMMARY ---
Discharge Summary
Discharge Data
Date of Admission: 10/27/23
Date of Discharge: 10/29/23
-
Pending Results: No
Hospital Course
Primary diagnoses:
Acute Crohn's flare
Small bowel obstruction
Iron deficiency anemia
Secondary diagnoses:
None
Consultants:
Gastroenterology
Surgery
Imaging:
CT A/P: There is extensive wall thickening, hyperenhancement and surrounding stranding involving the terminal ileum measuring approximately 8.5 cm in length. Findings are consistent with inflammation secondary to known Crohn's disease. There is
associated diffuse small bowel and gastric distention which may related to reactive ileus versus obstruction with possible underlying stenosis of the terminal ileum. Small volume free fluid within the left paracolic gutter.
Hospital course: 22-year-old male who presented with chief complaints of vomiting and abdominal pain as outlined in the H&P done on admission. CT scan of the abdomen pelvis as above. He was diagnosed with an acute Crohn's flare. He was seen in
consultation by general surgery for concerns for small bowel obstruction. It appears the patient's small bowel obstruction was not due to to true stricture but was due to inflammation. No surgical intervention was recommended or required. ESR 11,
CRP 25. Patient was initially NPO and supported with IV fluids. He was placed on Rocephin and Flagyl. He was also placed on IV Solu-Medrol. Antibiotics were stopped and the patient was transitioned to oral prednisone. At the time of discharge
she was tolerating a low residue diet. His symptoms improved while hospitalized. His iron and percent saturation were slightly low. At the time of discharge, after IV fluids, his hemoglobin was slightly low at 12.5. He did receive IV iron.
Discharge Plan
-
Patient Disposition: Home (Routine Discharge)
Discharge Diagnosis/Procedures: Acute flare of Crohn's disease with associated small bowel obstruction
Condition: Good
Diet: Low Residue
Activity: As tolerated
Driving Restrictions: As prior to admission
Bathing Restrictions: None
Referrals:
Jose Huston MD [Family Provider] - in less than 1 week
Prescriptions:
New
prednisone 20 mg Tablet
40 mg PO DAILY Qty: 60 0RF
Continued
acetaminophen [Tylenol] 325 mg Tablet
650 mg PO Q6HPRN PRN (Reason: mild pain)
ketoconazole 2 % Shampoo
1 applic TOPICAL DAILYPRN PRN (Reason: dandruff flareup)
therapeutic multivitamin Tablet
1 tab PO DAILY
ferrous sulfate 325 mg (65 mg iron) Tablet
325 mg PO Q48H
Discharge Orders:
Discharge Patient (As Directed); Ordered 10/29/23
Ordered By: Elijah Valle
Discharge Date and Time
Print Language: QATARI
== END 2023-10-29 16:12 | disposition home or self-care (01) | DRG 387 ==
LOC: 4 EAST ACU 18:25
PROVIDERS: Emergency Medicine; ADMITTING PHYSICIAN Internal Medicine; CONSULT PHYSICIAN Internal Medicine Gastroenterology; CONSULT PHYSICIAN Surgery; EMERGENCY PHYSICIAN Emergency Medicine; FAMILY PHYSICIAN Pediatrics
DX: K50.012 Crohn's disease of small intestine with intestinal obstruction (principal); D50.9 Iron deficiency anemia, unspecified; T44.5X6A Underdosing of predominantly beta-adrenoreceptor agonists, initial encounter; L21.0 Seborrhea capitis; Z91.138 Patient's unintentional underdosing of medication regimen for other reason; Z79.899 Other long term (current) drug therapy
CPT/HCPCS: 74018; 74177; 80048; 80053; 82728; 83540; 83550; 83605; 83690; 83735; 85025; 85027; 85652; 86140; 87045; 87046; 87324; 87427; 87449; 96361; 96374; 96375; 96376; 99285; J2916; Q9967